=== PATIENT | female | born 1955 | race Caucasian/White ===

== ENCOUNTER 2017-07-01 12:11 | Emergency (ER) | payer OTHER ==
[~2017-07-01] VITALS: Ht 165.1 cm; Wt 71.0 kg
[2017-07-01 12:18] VITALS: Ht 165.1 cm; Wt 71.0 kg
--- NOTE | 2017-07-01 12:53 | ERA ---
ER Documentation Chief Complaint Date/Time DATE: 07/01/17 TIME: 12:53 Chief Complaint ap/flank pain x 1 week HPI The patient is a 61-year-old female, presenting to the ER because of right low back pain, right flank pain intermittently for 1 week worse with movement denies fecal/urinary incontinence. She went to see chronic pain management today but was sent to the ER. He denies fever, chills, neck pain, chest pain. She denies dysuria, complains of diarrhea. She does not smoke nor drink Past medical history: HTN, depression, chronic low back pain, hypertension, hypothyroidism Past surgical history: Breast augmentation ROS All systems reviewed and are negative except as per history of present illness. Medications Home Meds Active Scripts Carisoprodol* (Soma*) 350 Mg Tablet, 350 MG PO TID Y for MUSCLE SPASMS, #15 TAB Prov:JENNIFER SWAIN MD 07/01/17 Reported Medications Fluticasone Propionate* (Fluticasone Propionate* Nasal) 50 Mcg/[place] - 16 Gm [place].susp, 1 SPRAY NASAL DAILY, #1 BOTTLE TO EACH NOSTRIL 07/01/17 Gabapentin* (Gabapentin*) 300 Mg Capsule, 300 MG PO DAILY, #60 CAP 07/01/17 Albuterol Sulfate* (Proair HFA*) 8.5 Gm Hfa.aer.ad, 2 PUFF INH Q6H Y for WHEEZING AND SOB, #1 INHALER 07/01/17 Hydrochlorothiazide* (Hydrochlorothiazide*) 12.5 Mg Tablet, 12.5 MG PO DAILY, # 30 TAB 07/01/17 Topiramate (Topiramate ER) 25 Mg Cap.spr.24, 25 MG PO DAILY 07/01/17 Azelastine Hcl* (Azelastine Hcl*) 0.05%-6 Ml Opht Drops, 1 DROP BOTH EYES BID, # 1 EA 07/01/17 Omeprazole* (Omeprazole*) 40 Mg Capsule.dr, 40 MG PO DAILY, #30 CAP 07/01/17 Mirtazapine* (Mirtazapine*) 15 Mg Tablet, 15 MG PO HS, TAB 07/01/17 Ezetimibe* (Zetia*) 10 Mg Tablet, 10 MG PO HS, TAB 07/01/17 Estrogen,Con/M-Progest Acet (Prempro 0.3 mg-1.5 mg Tablet) 1 Each Tablet, 1 EACH PO DAILY, TAB 07/01/17 Duloxetine Hcl* (Duloxetine Hcl*) 60 Mg Capsule.dr, 60 MG PO DAILY, #30 CAP 07/01/17 Ergocalciferol (Vitamin D2) (VITAMIN D2) 2,000 Unit Tablet, 2000 UNIT PO DAILY, TAB 07/01/17 Hydrocodone/Acetaminophen (Chetopa 10-325 Tablet) 1 Each Tablet, 1 EACH PO QID Y for PAIN, TAB 07/01/17 Levothyroxine Sodium* (Levoxyl*) 75 Mcg Tablet, 75 MCG PO BEFORE BREAKFAST, #30 TAB 07/01/17 Bisacodyl* (Bisacodyl*) 5 Mg Tablet.dr, 5 MG PO DAILY, TAB 07/01/17 Diazepam* (Diazepam*) 5 Mg Tablet, 5 MG PO DAILY, TAB 07/01/17 Naproxen* (Naprosyn*) 500 Mg Tablet, 500 MG PO BID, TAB 07/01/17 Ranitidine Hcl* (Ranitidine Hcl*) 300 Mg Tablet, 300 MG PO HS, #30 TAB 07/01/17 Allergies Allergies: Coded Allergies: No Known Allergy (Unverified , 07/01/17) PMhx/Soc History of Surgery: Yes (BREAST AUGMENTATION) Anesthesia Reaction: No Hx Neurological Disorder: Yes (MIGRAINE) Hx Respiratory Disorders: No Hx Cardiac Disorders: No Hx Psychiatric Problems: Yes (DEPRESSION) Hx Miscellaneous Medical Probl: No Hx Alcohol Use: No Hx Substance Use: No Hx Tobacco Use: No Physical Exam Vitals Vital Signs Date Time Temp Pulse Resp B/P Pulse Ox O2 Delivery O2 Flow Rate FiO2 07/01/17 17:07 98.2 88 14 138/66 99 Room Air 07/01/17 12:18 98.9 112 20 192/86 99 Physical Exam Const: No acute distress. Head: Atraumatic. Eyes: Normal Conjunctiva. ENT: Normal External Ears, Nose and Mouth. Neck: Full range of motion. No meningismus. Resp: Clear to auscultation bilaterally. Cardio: Regular rate and rhythm. Abd: Soft, non distended, normal bowel sounds, flank tenderness, diffuse and vague abdominal tenderness, no rigidity, rebound, CVA tenderness Skin: No petechiae or rashes. Back: No midline or flank tenderness. Ext: No cyanosis, or edema. Neur: Awake and alert. No focal deficit Psych: Normal Mood and Affect. Result Diagram: 07/01/17 1300 07/01/17 1300 Results 24 hrs Laboratory Tests Test 07/01/17 13:00 07/01/17 14:29 White Blood Count 9.510^3/ul Red Blood Count 4.6310^6/ul Hemoglobin 14.0g/dl Hematocrit 42.0% Mean Corpuscular Volume 90.7fl Mean Corpuscular Hemoglobin 30.2pg Mean Corpuscular Hemoglobin Concent 33.3g/dl Red Cell Distribution Width 12.7% Platelet Count 02785^3/UL Mean Platelet Volume 9.8fl Neutrophils % 68.2% Lymphocytes % 23.2% Monocytes % 7.6% Eosinophils % 0.4% Basophils % 0.5% Nucleated Red Blood Cells % 0.0/100WBC Neutrophils # 6.510^3/ul Lymphocytes # 2.210^3/ul Monocytes # 0.710^3/ul Eosinophils # 0.010^3/ul Basophils # 0.110^3/ul Nucleated Red Blood Cells # 0.010^3/ul Sodium Level 143mmol/L Potassium Level 3.6mmol/L Chloride Level 102mmol/L Carbon Dioxide Level 28mmol/L Anion Gap 17 Blood Urea Nitrogen 11mg/dl Creatinine 0.77mg/dl Glucose Level 92mg/dl Calcium Level 9.3mg/dl Total Bilirubin 0.4mg/dl Direct Bilirubin 0.00mg/dl Indirect Bilirubin 0.4mg/dl Aspartate Amino Transf (AST/SGOT) 24IU/L Alanine Aminotransferase (ALT/SGPT) 25IU/L Alkaline Phosphatase 61IU/L Total Protein 8.3g/dl Albumin 4.6g/dl Globulin 3.70g/dl Albumin/Globulin Ratio 1.24 Lipase 82U/L Bedside Urine pH (LAB) 6.5 Bedside Urine Protein (LAB) Negative Bedside Urine Glucose (UA) Negative Bedside Urine Ketones (LAB) Negative Bedside Urine Blood 1+ Bedside Urine Nitrite (LAB) Negative Bedside Urine Leukocyte Esterase (L Negative Current Medications Medications (Trade) Dose Ordered Sig/Kaye Route PRN Reason Start Time Stop Time Status Last Admin Dose Admin Morphine Sulfate (morphine) 4 mg ONCE STAT IV 07/01/17 13:03 07/01/17 13:05 DC 07/01/17 13:28 Ondansetron HCl (Zofran Inj) 4 mg ONCE STAT IV 07/01/17 13:03 07/01/17 13:05 DC 07/01/17 13:28 Hydromorphone HCl (Dilaudid) 1 mg ONCE STAT IV 07/01/17 14:45 07/01/17 14:47 DC 07/01/17 14:54 Procedures/[place] [id number] Radiology Main Line: [phone] DIAGNOSTIC IMAGING REPORT Patient: RUTHIE KAN : 1955 Age: 61 Sex: F MR #: [id number] DOS: 07/01/17 1303 Ordering MD: JENNIFER SWAIN MD Location: E/R Room/Bed: PROCEDURE: US right upper quadrant abdomen. CLINICAL INDICATION: Abdominal pain TECHNIQUE: Multiple real-time images were acquired of the patient's right upper quadrant abdomen utilizing a high resolution transducer. COMPARISON: None FINDINGS: The liver demonstrates normal echogenicity and normal size without focal lesions. Patent portal vein. Nondistended gallbladder contains a polyp without vascular stalk measuring 7 mm. No gallstones, pericholecystic fluid or gallbladder wall thickening. Negative sonographic Leal's sign. No intrahepatic or extrahepatic biliary dilatation. The common bile duct measures 3.3 mm in maximal dimension. The visualized portions of the pancreas are normal. The right kidney is normal size with normal echogenicity and morphology. The right kidney measures 11.3 cm. Mild right hydronephrosis.. There are no areas of increased echogenicity to suggest nephrolithiasis. Normal caliber aorta and IVC. No peritoneal free fluid. IMPRESSION: 1. 7 mm gallbladder polyp. 2. Mild right hydronephrosis. RPTAT:AAJJ Physician Lavell Date Time Electronically viewed and signed by Physician Lavell on 07/01/2017 13 :47 MH/ CC: JENNIFER SWAIN MD [place] [id number] Radiology Main Line: [phone] DIAGNOSTIC IMAGING REPORT Patient: RUTHIE KAN : 1955 Age: 61 Sex: F MR #: [id number] DOS: 07/01/17 1303 Ordering MD: JENNIFER SWAIN MD Location: E/R Room/Bed: PROCEDURE: CT ABDOMEN AND PELVIS WITHOUT CONTRAST. CLINICAL INDICATION: Right flank pain TECHNIQUE: CT scan of the abdomen and pelvis without contrast was performed on a multidetector high-resolution CT scanner. The patient was scanned without intravenous contrast. Coronal and sagittal reformatted images were obtained from the axial source images. Images were reviewed on a high-resolution PACS workstation. The total exam CTDI equals 11.5 mGy and the total exam DLP equals 647.9 mGy-cm. One or more of the following dose reduction techniques were used: Automated exposure control. Adjustment of the mA and/or kV according to patient size. Use of iterative reconstruction technique. COMPARISON: None FINDINGS: CT abdomen: The lung bases are clear. The heart size is within limits. There is no significant pericardial effusion. Hepatic morphology is within normal limits. No gross contour deforming masses. The gallbladder is within normal limits. No evidence of intrahepatic or extrahepatic biliary dilatation. The spleen and pancreas are within normal limits. Both adrenal glands are within normal limits. Both kidneys are normal anatomic position. No gross renal/ureteric calculi. No evidence of obstruction or hydronephrosis. The visualized GI tract demonstrates normal caliber loops of small large bowel. No bowel obstruction. The appendix is within normal limits. Atherosclerotic calcification of aorta is noted. There is no significant retroperitoneal lymphadenopathy. CT pelvis: The bladder is distended. The rectosigmoid colon appears to within normal limits. No significant free fluid. No significant pelvic lymphadenopathy. The uterus is retroverted. Visualized osseous structures demonstrates multilevel degenerative disease with endplate sclerosis and Schmorl's node at the level of L4-L5. IMPRESSION: 1. No gross renal/ureteric calculi. No evidence of obstruction or hydronephrosis. 2. Distended bladder. Recommend decompression. 3. No evidence of bowel obstruction. Appendix is within normal limits. RPTAT: AAPP Physician Herbert Date Time Electronically viewed and signed by Physician Herbert on 07/01/2017 14:28 JL/ CC: JENNIFER SWAIN MD MEDICAL MAKING DECISION: The patient is a 61-year-old female, presenting with acute abdominal pain acute on chronic back pain, acute hematuria. She was treated with morphine 4 mg IV and Dilaudid 1 mg IV for pain and Zofran 4 mg IV for nausea with good response. The Quiroz catheter only drained out about 200 cc of urine. The differential diagnoses considered include but are not limited to cholelithiasis, cholecystitis, cystitis, pancreatitis, hepatitis, gastritis, peptic ulcer disease, gastric ulcer, appendicitis, diverticulitis, cholangitis, choledocholithiasis, partial small bowel obstruction. Departure Diagnosis: Primary Impression: Abdominal pain Additional Impressions: Back pain Hematuria Gallbladder polyp Condition: Good Comments She was discharged with Soma and advised to continue Chetopa I discussed the findings with the patient. I advised the patient to follow-up with the primary physician in about 1-2 days, sooner if needed and return if any concern. JENNIFER SWAIN MD Jul 01, 2017 12:53
[2017-07-01] MEDS ORDERED: ONDANSETRON 4 MG INJ IV STA (13:03)
[2017-07-01] MEDS ORDERED: morphine 4 MG/ML VIAL IV STA (13:03)
[2017-07-01 13:11] LABS: BASOPHIL # 0.1 10^3/ul (0.0-0.1); BASOPHILS % 0.5 % (0.0-2.0); EOSINOPHILS % 0.4 % (0.0-7.0); LYMPHOCYTES # 2.2 10^3/ul (0.8-2.9); LYMPHOCYTES % 23.2 % (15.0-51.0); MEAN CORPUSCULAR HEMOGLOBIN 30.2 pg (29.0-33.0); MEAN CORPUSCULAR HGB CONC 33.3 g/dl (32.0-37.0); MEAN CORPUSCULAR VOLUME 90.7 fl (82.0-101.0); MEAN PLATELET VOLUME 9.8 fl (7.4-10.4); MONOCYTE # 0.7 10^3/ul (0.3-0.9); MONOCYTES % 7.6 % (0.0-11.0); NEUTROPHIL # 6.5 10^3/ul (1.6-7.5); NEUTROPHILS % 68.2 % (39.0-77.0); PLATELET COUNT 315 10^3/UL (140-415); RED BLOOD COUNT 4.63 10^6/ul (4.20-5.40); RED CELL DISTRIBUTION WIDTH 12.7 % (11.5-14.5); WHITE BLOOD COUNT 9.5 10^3/ul (4.8-10.8)
[2017-07-01 13:32] LABS: ALBUMIN 4.6 g/dl (3.3-4.9); ALBUMIN/GLOBULIN RATIO 1.24; BILIRUBIN,INDIRECT 0.4 mg/dl (0-1.1); BILIRUBIN,TOTAL 0.4 mg/dl (0.2-1.3); CALCIUM 9.3 mg/dl (8.4-10.2); CREATININE 0.77 mg/dl (0.44-1.00); POTASSIUM 3.6 mmol/L (3.5-5.1); TOTAL PROTEIN 8.3 g/dl (6.1-8.1)
--- NOTE | 2017-07-01 13:47 | RADRPT ---
PROCEDURE: US right upper quadrant abdomen. CLINICAL INDICATION: Abdominal pain TECHNIQUE: Multiple real-time images were acquired of the patient's right upper quadrant abdomen utilizing a high resolution transducer. COMPARISON: None FINDINGS: The liver demonstrates normal echogenicity and normal size without focal lesions. Patent portal vein . Nondistended gallbladder contains a polyp without vascular stalk measuring 7 mm. No gallstones, pe richolecystic fluid or gallbladder wall thickening. Negative sonographic Leal's sign. No intrahep atic or extrahepatic biliary dilatation. The common bile duct measures 3.3 mm in maximal dimension. The visualized portions of the pancreas are normal. The right kidney is normal size with normal ec hogenicity and morphology. The right kidney measures 11.3 cm. Mild right hydronephrosis.. There ar e no areas of increased echogenicity to suggest nephrolithiasis. Normal caliber aorta and IVC. No pe ritoneal free fluid. IMPRESSION: 1. 7 mm gallbladder polyp. 2. Mild right hydronephrosis. RPTAT:AAJJ Physician Lavell Date Time Electronically viewed and signed by Physician Lavell on 07/01/2017 13:47 /
[2017-07-01] MEDS ORDERED: NAPR-260 PO (14:00)
[2017-07-01] MEDS ORDERED: RANI300T PO (14:00)
[2017-07-01] MEDS ORDERED: DIAZ5TAB4 PO (14:01)
[2017-07-01] MEDS ORDERED: BISA5TAB6 PO (14:01)
[2017-07-01] MEDS ORDERED: LEVO75TA65 PO (14:02)
[2017-07-01] MEDS ORDERED: ERGO2000 PO (14:19)
[2017-07-01] MEDS ORDERED: HYDR-902 PO (14:19)
[2017-07-01] MEDS ORDERED: ESTR1TAB13 PO (14:20)
[2017-07-01] MEDS ORDERED: EZET10TA3 PO (14:20)
[2017-07-01] MEDS ORDERED: DULO60CA59 PO (14:20)
[2017-07-01 14:21] LABS: URINE BLOOD (Dip) POC 1+ (NEGATIVE)
[2017-07-01] MEDS ORDERED: AZEL6DRO2 BOTH EYES (14:21)
[2017-07-01] MEDS ORDERED: OMEP40CA6 PO (14:21)
[2017-07-01] MEDS ORDERED: MIRT15TA5 PO (14:21)
[2017-07-01] MEDS ORDERED: HYDR12.58 PO (14:22)
[2017-07-01] MEDS ORDERED: TOPI25CA11 PO (14:22)
[2017-07-01] MEDS ORDERED: ALBU8.5H3 INH (14:23)
[2017-07-01] MEDS ORDERED: GABA300C16 PO (14:23)
[2017-07-01] MEDS ORDERED: FLUT16SP17 NASAL (14:24)
--- NOTE | 2017-07-01 14:28 | RADRPT ---
PROCEDURE: CT ABDOMEN AND PELVIS WITHOUT CONTRAST. CLINICAL INDICATION: Right flank pain TECHNIQUE: CT scan of the abdomen and pelvis without contrast was performed on a multidetector hig h-resolution CT scanner. The patient was scanned without intravenous contrast. Coronal and sagittal reformatted images were obtained from the axial source images. Images were reviewed on a high-resol [employer] PACS workstation. The total exam CTDI equals 11.5 mGy and the total exam DLP equals 647.9 mGy- cm. One or more of the following dose reduction techniques were used: Automated exposure control. Adjustment of the mA and/or kV according to patient size. Use of iterative reconstruction technique. COMPARISON: None FINDINGS: CT abdomen: The lung bases are clear. The heart size is within limits. There is no significant pericardial effus ion. Hepatic morphology is within normal limits. No gross contour deforming masses. The gallbladder is wi thin normal limits. No evidence of intrahepatic or extrahepatic biliary dilatation. The spleen and pancreas are within normal limits. Both adrenal glands are within normal limits. Both kidneys are normal anatomic position. No gross renal/ureteric calculi. No evidence of obstructi on or hydronephrosis. The visualized GI tract demonstrates normal caliber loops of small large bowel. No bowel obstruction . The appendix is within normal limits. Atherosclerotic calcification of aorta is noted. There is no significant retroperitoneal lymphadenop athy. CT pelvis: The bladder is distended. The rectosigmoid colon appears to within normal limits. No significant delfina e fluid. No significant pelvic lymphadenopathy. The uterus is retroverted. Visualized osseous structures demonstrates multilevel degenerative disease with endplate sclerosis a nd Schmorl's node at the level of L4-L5. IMPRESSION: 1. No gross renal/ureteric calculi. No evidence of obstruction or hydronephrosis. 2. Distended bladder. Recommend decompression. 3. No evidence of bowel obstruction. Appendix is within normal limits. RPTAT: AAPP Physician Herbert Date Time Electronically viewed and signed by Physician Herbert on 07/01/2017 14:28 ABA/
[2017-07-01] MEDS ORDERED: HYDROmorphONE 1 MG/ML SYG IV STA (14:45)
[2017-07-01] MEDS ORDERED: CARI350T PO (17:06)
[2017-07-01 17:07] VITALS: BP 138/66; PULSE 88; RESP 14; TEMP 98.2
== END 2017-07-01 17:14 | disposition home or self-care (01) ==
LOC: E/R 12:11
DX: R10.84 Generalized abdominal pain (principal); R31.9 Hematuria, unspecified; K82.4 Cholesterolosis of gallbladder; I10 Essential (primary) hypertension; E03.9 Hypothyroidism, unspecified
CPT/HCPCS: 74176; 76705; 80053; 81003; 83690; 85025; 96374; 96375; J1170; J2270; J2405; Z7502

== ENCOUNTER 2017-10-24 07:45 | Day surgery (SDC) | END 2017-10-24 16:17 | disposition home or self-care (01) ==

== ENCOUNTER 2019-02-22 14:51 | Emergency (ER) | payer OTHER ==
[~2019-02-22] VITALS: Ht 162.6 cm; Wt 75.0 kg
[~2019-02-22 14:51] MED LIST: ALBU8.5H8 INH; AZEL6DRO2 BOTH EYES; BISA5TAB6 PO; CARI350T PO; DIAZ5TAB4 PO; DULO60CA59 PO; ERGO2000 PO; ESTR1TAB13 PO; EZET10TA31 PO; FLUT16SP17 NASAL; GABA300C16 PO; HYDR-3980 PO; HYDR12.58 PO; LEVO75TA65 PO; MIRT15TA5 PO; NAPR-985 PO; OMEP40CA6 PO; RANI300T PO; TOPI25CA11 PO; TRAZ-111 PO
[2019-02-22 14:54] VITALS: Ht 162.6 cm; Wt 75.0 kg
[2019-02-22] MEDS ORDERED: HYDROmorphONE 1 MG/ML SYG IV STA ×2 (15:51→17:30)
[2019-02-22] MEDS ORDERED: ONDANSETRON 4 MG INJ IV STA ×2 (15:51→17:30)
[2019-02-22] MEDS ORDERED: ALBU8.5H8 INH (16:55)
[2019-02-22] MEDS ORDERED: ESTR1TAB13 PO (16:56)
[2019-02-22] MEDS ORDERED: DULO60CA6 PO (16:56)
[2019-02-22] MEDS ORDERED: ERGO2000 PO (16:56)
[2019-02-22] MEDS ORDERED: HYDR12.58 PO (16:57)
[2019-02-22] MEDS ORDERED: GABA300C16 PO (16:57)
[2019-02-22] MEDS ORDERED: FLUT16SP17 NASAL (16:57)
[2019-02-22] MEDS ORDERED: LEVO75TA65 PO (16:58)
[2019-02-22] MEDS ORDERED: HYDR-3980 PO ×2 (16:58→19:33)
[2019-02-22] MEDS ORDERED: SIMV40TA2 PO (16:59)
[2019-02-22] MEDS ORDERED: MIRT15TA5 PO (16:59)
[2019-02-22] MEDS ORDERED: OMEP40CA6 PO (17:00)
[2019-02-22] MEDS ORDERED: RANI300T PO (17:01)
[2019-02-22] MEDS ORDERED: SOD CHLORIDE 0.9% 100 ML ONE (17:12)
[2019-02-22] MEDS ORDERED: IOHEXOL 300MG/ML 150 ML BTL ONE (17:12)
[2019-02-22 18:24] VITALS: BP 129/84; PULSE 80; RESP 18
[2019-02-22] MEDS ORDERED: POLY17PO6 PO (19:33)
[2019-02-22] MEDS ORDERED: RIFA550T4 PO (19:33)
[2019-02-22] MEDS ORDERED: NEO500 PO (19:33)
--- NOTE | 2019-02-22 19:57 | ERD ---
ER Documentation Chief Complaint Chief Complaint RIGHT FLANK PAIN WITH RL PELVIC PAIN HPI This is a 63-year-old female who is 1 month of abdominal pain. She says after eating meals she has diffuse bloating after 1 to 2 hours after meals. There is a stacking effect of the bloating throughout the day is more food she eats she gets more bloated. She is having alternating bouts of constipation and diarrhea. No nausea vomiting. She says for the past 2 days she has had more pain in the right lower quadrant sometimes radiating to the back and sometimes radiating to the groin or top of the thigh. Pain is a dull ache. No dysuria no hematuria. No fever. Pain is mild to moderate ROS All systems reviewed and are negative except as per history of present illness. Medications Home Meds Active Scripts Polyethylene Glycol* (Miralax*) 17 Gm Powd.pack, 17 GM PO DAILY, #7 Prov:JUSTIN CHISHOLM DO 02/22/19 Hydrocodone/Acetaminophen ([place] 10-325 Tablet) 1 Each Tablet, 1 TAB PO Q6H PRN for PAIN, #10 TAB Prov:JUSTIN CHISHOLM DO 02/22/19 Neomycin Sulfate* (Neomycin Sulfate*) 500 Mg Tab, 500 MG PO BID for 10 Days, TAB Prov:JUSTIN CHISHOLM. DO 02/22/19 Rifaximin* (Xifaxan*) 550 Mg Tablet, 550 MG PO TID for 10 Days, TAB Prov:JUSTIN CHISHOLM. DO 02/22/19 Reported Medications Ranitidine Hcl* (Ranitidine Hcl*) 300 Mg Tablet, 300 MG PO HS, #30 TAB 02/22/19 Omeprazole* (Omeprazole*) 40 Mg Capsule.dr, 40 MG PO DAILY, #30 CAP 02/22/19 Simvastatin* (Zocor*) 40 Mg Tablet, 40 MG PO QHS, #30 TAB 02/22/19 Mirtazapine* (Mirtazapine*) 15 Mg Tablet, 15 MG PO HS, TAB 02/22/19 Levothyroxine Sodium* (Levoxyl*) 75 Mcg Tablet, 75 MCG PO BEFORE BREAKFAST, #30 TAB 02/22/19 Hydrocodone/Acetaminophen ([place] 10-325 Tablet) 1 Each Tablet, 1 EACH PO BID PRN for PAIN, TAB 02/22/19 Hydrochlorothiazide* (Hydrochlorothiazide*) 12.5 Mg Tablet, 12.5 MG PO DAILY, #30 TAB 02/22/19 Gabapentin* (Gabapentin*) 300 Mg Capsule, 300 MG PO BID, #60 CAP 02/22/19 Fluticasone Propionate* (Fluticasone Propionate* Nasal) 50 Mcg/[place] - 16 Gm [place].susp, 1 SPRAY NASAL DAILY, #1 BOTTLE TO EACH NOSTRIL 02/22/19 Estrogen,Con/M-Progest Acet (Prempro 0.3 mg-1.5 mg Tablet) 1 Each Tablet, 1 EACH PO DAILY, TAB 02/22/19 Ergocalciferol (Vitamin D2) (VITAMIN D2) 2,000 Unit Tablet, 2000 UNIT PO DAILY, TAB 02/22/19 Duloxetine Hcl* (Cymbalta*) 60 Mg Capsule.dr, 60 MG PO DAILY, CAP 02/22/19 Albuterol Sulfate* (Proair HFA*) 8.5 Gm Hfa.aer.ad, 2 PUFF INH Q4H PRN for WHEEZING AND SOB, #1 INHALER 02/22/19 Discontinued Reported Medications Trazodone Hcl* (Trazodone Hcl*) 50 Mg Tablet, 50 MG PO QHS, #30 TAB 10/24/17 Fluticasone Propionate* (Fluticasone Propionate* Nasal) 50 Mcg/[place] - 16 Gm [place].susp, 1 SPRAY NASAL DAILY, #1 BOTTLE TO EACH NOSTRIL 07/01/17 Gabapentin* (Gabapentin*) 300 Mg Capsule, 300 MG PO DAILY, #60 CAP 07/01/17 Albuterol Sulfate* (Proair HFA*) 8.5 Gm Hfa.aer.ad, 2 PUFF INH Q6H PRN for WHEEZING AND SOB, #1 INHALER 07/01/17 Hydrochlorothiazide* (Hydrochlorothiazide*) 12.5 Mg Tablet, 12.5 MG PO DAILY, #30 TAB 07/01/17 Topiramate (Topiramate ER) 25 Mg Cap.spr.24, 25 MG PO DAILY 07/01/17 Azelastine Hcl* (Azelastine Hcl*) 0.05%-6 Ml Opht Drops, 1 DROP BOTH EYES BID, #1 EA 07/01/17 Omeprazole* (Omeprazole*) 40 Mg Capsule.dr, 40 MG PO DAILY, #30 CAP 07/01/17 Mirtazapine* (Mirtazapine*) 15 Mg Tablet, 15 MG PO HS, TAB 07/01/17 Ezetimibe* (Zetia*) 10 Mg Tablet, 10 MG PO HS, TAB 07/01/17 Estrogen,Con/M-Progest Acet (Prempro 0.3 mg-1.5 mg Tablet) 1 Each Tablet, 1 EACH PO DAILY, TAB 07/01/17 Duloxetine Hcl* (Duloxetine Hcl*) 60 Mg Capsule.dr, 60 MG PO DAILY, #30 CAP 07/01/17 Ergocalciferol (Vitamin D2) (VITAMIN D2) 2,000 Unit Tablet, 2000 UNIT PO DAILY, TAB 07/01/17 Hydrocodone/Acetaminophen ([place] 10-325 Tablet) 1 Each Tablet, 1 EACH PO QID PRN for PAIN, TAB 07/01/17 Levothyroxine Sodium* (Levoxyl*) 75 Mcg Tablet, 75 MCG PO BEFORE BREAKFAST, #30 TAB 07/01/17 Bisacodyl* (Bisacodyl*) 5 Mg Tablet.dr, 5 MG PO DAILY, TAB 07/01/17 Diazepam* (Diazepam*) 5 Mg Tablet, 5 MG PO DAILY, TAB 07/01/17 Naproxen* (Naprosyn*) 500 Mg Tablet, 500 MG PO BID, TAB 07/01/17 Ranitidine Hcl* (Ranitidine Hcl*) 300 Mg Tablet, 300 MG PO HS, #30 TAB 07/01/17 Discontinued Scripts Carisoprodol* (Soma*) 350 Mg Tablet, 350 MG PO TID PRN for MUSCLE SPASMS, #15 TAB Prov:JENNIFER SWAIN MD 07/01/17 Allergies Allergies: Coded Allergies: No Known Allergy (Unverified , 02/22/19) PMhx/Soc History of Surgery: Yes (breast implants, L ovary partially removed) Anesthesia Reaction: No Hx Neurological Disorder: No Hx Respiratory Disorders: Yes (asthma) Hx Cardiac Disorders: Yes (HTN, hyperlipidemia) Hx Psychiatric Problems: Yes (anxiety, depression) Hx Miscellaneous Medical Probl: Yes (neuropathy, arthritis) Hx Alcohol Use: Yes (formerly) Hx Substance Use: No Hx Tobacco Use: No Smoking Status: Never smoker FmHx Family History: No coronary disease Physical Exam Vitals Vital Signs Date Temp Pulse Resp B/P (MAP) Pulse Ox O2 O2 Flow FiO2 Time Delivery Rate 02/22/19 80 18 129/84 98 Room Air 18:24 (99) 02/22/19 97.9 75 18 151/70 100 Room Air 17:27 (97) 02/22/19 99.6 111 18 176/97 97 14:54 (123) Physical Exam Const: Well-developed, well-nourished Head: Atraumatic, normocephalic Eyes: Normal Conjunctiva, PERRLA, EOMI, normal sclera, no nystagmus ENT: Normal External Ears, Nose and Mouth, moist mucus membranes. Neck: Full range of motion. No meningismus, no lymphadenopathy. Resp: Clear to auscultation bilaterally, no wheezing, rhonchi, rales Cardio: Regular rate and rhythm, no murmurs, S1 S2 present Abd: Soft, diffuse abdominal mild tenderness with increased tenderness in the right lower quadrant, non distended. Normal bowel sounds, no guarding or rebound, no pulsitile abdominal masses or bruits Skin: No petechiae or rashes, no ecchymosis , no maculopapular rash Back: No midline or flank tenderness Ext: No cyanosis, or edema, FROM x 4, normal inspection, neurovascularly intact x 4 Neur: Awake and alert, STR 5/5 x 4, sensation intact x 4, no focal findings, cerebellum intact Psych: Normal Mood and Affect Result Diagram: 02/22/19 1559 02/22/19 1559 Results 24 hrs Laboratory Tests Test 02/22/19 15:59 02/22/19 16:22 White Blood Count 7.7 10^3/ul Red Blood Count 4.45 10^6/ul Hemoglobin 13.7 g/dl Hematocrit 40.3 % Mean Corpuscular Volume 90.6 fl Mean Corpuscular Hemoglobin 30.8 pg Mean Corpuscular Hemoglobin Concent 34.0 g/dl Red Cell Distribution Width 12.3 % Platelet Count 287 10^3/UL Mean Platelet Volume 9.9 fl Immature Granulocytes % 0.300 % Neutrophils % 46.0 % Lymphocytes % 41.2 % Monocytes % 9.9 % Eosinophils % 1.7 % Basophils % 0.9 % Nucleated Red Blood Cells % 0.0 /100WBC Immature Granulocytes # 0.020 10^3/ul Neutrophils # 3.5 10^3/ul Lymphocytes # 3.2 10^3/ul Monocytes # 0.8 10^3/ul Eosinophils # 0.1 10^3/ul Basophils # 0.1 10^3/ul Nucleated Red Blood Cells # 0.0 10^3/ul Sodium Level 141 mmol/L Potassium Level 4.1 mmol/L Chloride Level 105 mmol/L Carbon Dioxide Level 27 mmol/L Anion Gap 9 Blood Urea Nitrogen 14 mg/dl Creatinine 0.63 mg/dl Est Glomerular Filtrat Rate mL/min > 60 mL/min Glucose Level 91 mg/dl Calcium Level 9.0 mg/dl Total Bilirubin 0.5 mg/dl Direct Bilirubin 0.00 mg/dl Indirect Bilirubin 0.5 mg/dl Aspartate Amino Transf (AST/SGOT) 22 IU/L Alanine Aminotransferase (ALT/SGPT) 14 IU/L Alkaline Phosphatase 41 IU/L Total Protein 7.8 g/dl Albumin 4.3 g/dl Globulin 3.50 g/dl Albumin/Globulin Ratio 1.22 Urine Color YELLOW Urine Clarity SLIGHTLY CLOUDY Urine pH 6.0 Urine Specific [place] 1.016 Urine Ketones NEGATIVE mg/dL Urine Nitrite NEGATIVE mg/dL Urine Bilirubin NEGATIVE mg/dL Urine Urobilinogen NEGATIVE mg/dL Urine Leukocyte Esterase NEGATIVE Jim/ul Urine Microscopic RBC 5 /HPF Urine Microscopic WBC 0 /HPF Urine Squamous Epithelial Cells MODERATE /HPF Urine Hemoglobin 2+ mg/dL Urine Glucose NEGATIVE mg/dL Urine Total Protein NEGATIVE mg/dl Current Medications Medications Dose Sig/Kaye Start Time Status Last (Trade) Ordered Route PRN Stop Time Admin Dose Reason Admin 1 mg ONCE STAT 02/22/19 DC 02/22/19 Hydromorphone IV 15:51 02/22/19 16:09 HCl 15:52 (Dilaudid) Ondansetron 4 mg ONCE STAT 02/22/19 DC 02/22/19 HCl (Zofran IV 15:51 02/22/19 16:09 Inj) 15:52 IV Flush 10 ml STK-MED 02/22/19 DC (NS 10 ml) ONCE .ROUTE 17:12 02/22/19 17:13 Sodium 100 ml @ ud STK-MED 02/22/19 DC Chloride ONCE .ROUTE 17:12 02/22/19 17:13 Iohexol 150 ml STK-MED 02/22/19 DC (Omnipaque ONCE .ROUTE 17:12 02/22/19 300mg/ ml) 17:13 1 mg ONCE STAT 02/22/19 DC 02/22/19 Hydromorphone IV 17:30 02/22/19 17:42 HCl 17:31 (Dilaudid) Ondansetron 4 mg ONCE STAT 02/22/19 DC 02/22/19 HCl (Zofran IV 17:30 02/22/19 17:42 Inj) 17:31 Procedures/[place] [id number] Radiology Main Line: [phone] DIAGNOSTIC IMAGING REPORT Patient: RUTHIE KAN : 1955 Age: 63 Sex: F MR #: [id number] DOS: 02/22/19 1543 Ordering MD: JUSTIN CHISHOLM DO Location: E/R Room/Bed: PROCEDURE: CT Abdomen and Pelvis with contrast. CLINICAL INDICATION: RLQ pain / right adnexal pain. TECHNIQUE: CT scan of the abdomen and pelvis with contrast was performed on a multi-detector high-resolution CT scanner. Oral contrast was not administered. Coronal and sagittal reformatted images were obtained from the axial source images. DICOM images are available. IV contrast: 100 cc of Omnipaque 300 Radiation dose: CTDIvol (mGy) = 7.99 ; total DLP (mGy-cm) = 424.06 One or more of the following dose reduction techniques were used: - Automated exposure control. - Adjustment of the mA and/or kV according to patient size. - Use of iterative reconstruction technique. COMPARISON: US PELVIS 02/22/2019; CT 07/01/2017 , ultrasound gallbladder 07/01/2017. FINDINGS: Lower thorax: Right lower lobe subsegmental atelectasis. Liver: Mild hepatomegaly measuring 21 cm in craniocaudal dimension versus a Reidel's lobe. Biliary: 6 mm polyp when correlated with the 27 seen gallbladder ultrasound (series 3 image 77). No biliary dilatation. Pancreas: Normal Spleen: Normal. Adrenal Glands: Normal. Kidneys/Ureters: Kidneys enhance symmetrically. No hydroureternephrosis. Bladder: Normal. Reproductive organs: Uterus is present. No gross twisting of the adnexa by CT.. Gastrointestinal Tract: Moderate amount of stool in the colon. No evidence of appendicitis. No dilated loops of small bowel to suggest a small bowel obstruction. Peritoneum/Retroperitoneum: No free fluid or free air. Lymph nodes: No bulky adenopathy. Vessels: Mild aortoiliac atherosclerotic calcifications. Musculoskeletal: Mild degenerative changes of the spine. IMPRESSION: 1. No evidence of appendicitis. 2. Mild hepatomegaly measuring 21 cm in craniocaudal dimension versus a Reidel's lobe. This may be correlate with liver function exam. 3. A 6 mm gallbladder polyp. Advise follow-up ultrasound and 6-12 months. 4. Additional findings as detailed above. RPTAT: BBDD Physician Bridger Date Time Electronically viewed and signed by Physician Bridger on 02/22/2019 17:36 RP/ CC: JUSTIN CHISHOLM DO [place] [id number] Radiology Main Line: [phone] DIAGNOSTIC IMAGING REPORT Patient: RUTHIE KAN : 1955 Age: 63 Sex: F MR #: [id number] DOS: 02/22/19 1543 Ordering MD: JUSTIN CHISHOLM DO Location: E/R Room/Bed: PROCEDURE: US Pelvis. CLINICAL INDICATION: Abdominal Pain TECHNIQUE: Multiple sonographic images of the pelvis were obtained utilizing a transabdominal and endovaginal technique. The images were reviewed on a PACS workstation. COMPARISON: None. FINDINGS: The uterus is visualized is normal-appearing. Only uterine width was obtained by the mower sharpener measuring 4.5 cm. The endometrial echo complex is normal and measures 2 mm. There is no evidence for free fluid. The bilateral ovaries were not well seen. No adnexal masses seen. IMPRESSION: Normal appearing uterus and endometrial echo complex. Bilateral ovaries NOT seen. No adnexal masses seen. No pelvic free fluid. Jluis Alejandro, Physician Date Time Electronically viewed and signed by Jluis Alejandro Physician on 02/22/2019 17:00 ML/ CC: JUSTIN CHISHOLM DO [phone] No acute pathology on CT or ultrasound. After discussing the patient's symptoms she may have small intestinal bacterial overgrowth I will treat with Xifaxan and neomycin for 10 days. Alternatives if insurance does not cover Xifaxan would be Flagyl., Along with neomycin. She will follow-up with GI as needed. Departure Diagnosis: Primary Impression: Abdominal pain Abdominal location: right lower quadrant Qualified Codes: R10.31 - Right lower quadrant pain Condition: Stable Patient Instructions: Abdominal Pain Referrals: DOCTOR,NOT ON STAFF (PCP) JUSTIN CHISHOLM DO Feb 22, 2019 19:57
== END 2019-02-22 20:55 | disposition home or self-care (01) ==
LOC: E/R 14:51
DX: R10.31 Right lower quadrant pain (principal); I10 Essential (primary) hypertension; J45.909 Unspecified asthma, uncomplicated
CPT/HCPCS: 36415; 74177; 76830; 76856; 80053; 81001; 85025; 96374; 96375; 96376; J1170; J2405; Q9967; Z7502; Z7610

== ENCOUNTER 2019-04-08 16:27 | Emergency (ER) | payer OTHER ==
[~2019-04-08] VITALS: Ht 162.6 cm; Wt 70.9 kg
[~2019-04-08 16:27] MED LIST changes: -AZEL6DRO2 BOTH EYES; -BISA5TAB6 PO; -CARI350T PO; -DIAZ5TAB4 PO; -DULO60CA59 PO; +DULO60CA6 PO; -EZET10TA31 PO; -NAPR-985 PO; +NEO500 PO; +POLY17PO6 PO; +PRED20TA PO; +RIFA550T4 PO; +SIMV40TA2 PO; -TOPI25CA11 PO; -TRAZ-111 PO; +TRIA15CR55 TOP
[2019-04-08 16:31] VITALS: Ht 162.6 cm; Wt 70.9 kg
--- NOTE | 2019-04-08 17:31 | ERD ---
ER Documentation Chief Complaint Chief Complaint bilat wrist red/ burn/ itch/ pain x2d. 'lead poisoning fr purse?' epig pain HPI 63-year-old female presents with rash to the bilateral inner wrist that she is had for 2 days. She states it is burning and itchy. She thinks it may be lead poisoning from a new purse that she touched. No fever. She tried Benadryl spray but it did not help. Also complaining of epigastric pain with diarrhea. ROS All systems reviewed and are negative except as per history of present illness. Medications Home Meds Active Scripts Triamcinolone Acetonide (Triamcinolone Acetonide) 0.1% - 15 Gm Cream.gm., 1 APPLIC TOP BID, #30 GM Prov:ULICES VENTURA PA-C 04/08/19 Prednisone* (Prednisone*) 20 Mg Tab, 40 MG PO DAILY for 4 Days, TAB Prov:ULICES VENTURA PA-C 04/08/19 Polyethylene Glycol* (Miralax*) 17 Gm Powd.pack, 17 GM PO DAILY, #7 Prov:JUSTIN CHISHOLM DO 02/22/19 Hydrocodone/Acetaminophen ([place] 10-325 Tablet) 1 Each Tablet, 1 TAB PO Q6H PRN for PAIN, #10 TAB Prov:JUSTIN CHISHOLM DO 02/22/19 Neomycin Sulfate* (Neomycin Sulfate*) 500 Mg Tab, 500 MG PO BID for 10 Days, TAB Prov:JUSTIN CHISHOLM DO 02/22/19 Rifaximin* (Xifaxan*) 550 Mg Tablet, 550 MG PO TID for 10 Days, TAB Prov:JUSTIN CHISHOLM DO 02/22/19 Reported Medications Ranitidine Hcl* (Ranitidine Hcl*) 300 Mg Tablet, 300 MG PO HS, #30 TAB 02/22/19 Omeprazole* (Omeprazole*) 40 Mg Capsule.dr, 40 MG PO DAILY, #30 CAP 02/22/19 Simvastatin* (Zocor*) 40 Mg Tablet, 40 MG PO QHS, #30 TAB 02/22/19 Mirtazapine* (Mirtazapine*) 15 Mg Tablet, 15 MG PO HS, TAB 02/22/19 Levothyroxine Sodium* (Levoxyl*) 75 Mcg Tablet, 75 MCG PO BEFORE BREAKFAST, #30 TAB 02/22/19 Hydrocodone/Acetaminophen ([place] 10-325 Tablet) 1 Each Tablet, 1 EACH PO BID PRN for PAIN, TAB 02/22/19 Hydrochlorothiazide* (Hydrochlorothiazide*) 12.5 Mg Tablet, 12.5 MG PO DAILY, #30 TAB 02/22/19 Gabapentin* (Gabapentin*) 300 Mg Capsule, 300 MG PO BID, #60 CAP 02/22/19 Fluticasone Propionate* (Fluticasone Propionate* Nasal) 50 Mcg/[place] - 16 Gm [place].susp, 1 SPRAY NASAL DAILY, #1 BOTTLE TO EACH NOSTRIL 02/22/19 Estrogen,Con/M-Progest Acet (Prempro 0.3 mg-1.5 mg Tablet) 1 Each Tablet, 1 EACH PO DAILY, TAB 02/22/19 Ergocalciferol (Vitamin D2) (VITAMIN D2) 2,000 Unit Tablet, 2000 UNIT PO DAILY, TAB 02/22/19 Duloxetine Hcl* (Cymbalta*) 60 Mg Capsule.dr, 60 MG PO DAILY, CAP 02/22/19 Albuterol Sulfate* (Proair HFA*) 8.5 Gm Hfa.aer.ad, 2 PUFF INH Q4H PRN for WHEEZING AND SOB, #1 INHALER 02/22/19 Allergies Allergies: Coded Allergies: No Known Allergy (Unverified , 04/08/19) PMhx/Soc History of Surgery: Yes (breast implants, L ovary partially removed) Anesthesia Reaction: No Hx Neurological Disorder: No Hx Respiratory Disorders: Yes (asthma) Hx Cardiac Disorders: Yes (HTN, hyperlipidemia) Hx Psychiatric Problems: Yes (anxiety, depression) Hx Miscellaneous Medical Probl: Yes (neuropathy, arthritis) Hx Alcohol Use: Yes (formerly) Hx Substance Use: No Hx Tobacco Use: No Smoking Status: Never smoker FmHx Family History: No diabetes Physical Exam Vitals Vital Signs Date Temp Pulse Resp B/P (MAP) Pulse Ox O2 O2 Flow FiO2 Time Delivery Rate 04/08/19 99.9 110 18 177/84 96 16:31 (115) Physical Exam Const: No acute distress Head: Atraumatic Eyes: Normal Conjunctiva ENT: Normal External Ears, Nose and Mouth. Neck: Full range of motion. No meningismus. Resp: Clear to auscultation bilaterally Cardio: Regular rate and rhythm, no murmurs Abd: Soft, non tender, non distended. Skin: Bilateral inner wrists have erythematous rash, flat, nonraised, no vesicles or pustules, no warmth Procedures/MDM Patient is here with rash. Appears to be contact dermatitis. No evidence of life-threatening rash. She was given prescription for topical steroid cream and prednisone course. Patient counseled regarding my diagnostic impression and care plan. Prior to discharge all questions answered. Pt agrees with treatment plan and understands strict return precautions. Pt is instructed to follow up with primary care provider within 24-48 hours. Precautionary instructions provided including instructions to return to the ER if not improving or for any worsening or changing symptoms or concerns. Departure Diagnosis: Primary Impression: Rash Condition: Stable Patient Instructions: Self-Care for Skin Rashes Additional Instructions: Call your primary care doctor TOMORROW for an appointment during the next 1-2 days.See the doctor sooner or return here if your condition worsens before your appointment time. ULICES VENTURA PA-C Apr 08, 2019 17:31
[2019-04-08 17:39] VITALS: BP 152/88; PULSE 78; RESP 20
== END 2019-04-08 17:41 | disposition home or self-care (01) ==
LOC: FTE 16:27
DX: R21 Rash and other nonspecific skin eruption (principal); I10 Essential (primary) hypertension; J45.909 Unspecified asthma, uncomplicated
CPT/HCPCS: 99283